=== PATIENT | male | born 1960 | race Caucasian/White ===

== ENCOUNTER 2016-09-08 12:55 | Inpatient (IN) | payer OTHER ==
[~2016-09-08] VITALS: Ht 193 cm; Wt 107.2 kg
--- NOTE | 2016-09-09 08:36 | CO ---
ADMIT: 09/08/2016 RM/LOC: 501 [facility] MR#: [id number] [address] [facility] [address] [place], [place] [address] [address] [place] [address] Consultation SEX: M AGE: 56 : 1960 DATE OF CONSULTATION: 09/08/2016 ATTENDING PHYSICIAN: Ebenezer Barragan CONSULTING PHYSICIAN: Jane Callaway MD CHIEF COMPLAINT: Right hip pain. 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 He fell today on the ice, injuring his right hip. He presented to the emergency room where he was found to have a valgus impacted right femoral neck fracture. PAST MEDICAL HISTORY: He has had knee arthroscopy in the past. MEDICATIONS: 1. Atenolol. 2. Lexapro. 3. Lipitor. 4. Folic acid. 5. Prilosec. ALLERGIES: NONE KNOWN TO MEDICATIONS. MEDICAL PROBLEMS: Include hypertension. SOCIAL HISTORY: The patient is . 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 FAMILY HISTORY: Noncontributory. PHYSICAL EXAMINATION: This patient has no obvious deformity of the right lower extremity. Neurocirculatory function is intact. There is no shortening or external rotation deformity. X-rays were as described above. IMPRESSION: Valgus impacted right femoral neck fracture. RECOMMENDATION: Percutaneous screw fixation right hip with Synthes 7.3 mm cannulated screws. Risks, benefits, alternatives, as well as potential complications were discussed. Jane Callaway MD/ lauryn JOB #: [id number] CC: Ebenezer Barragan, Attending Physician Ebenezer Barragan, Family Physician
--- NOTE | 2016-09-10 08:56 | OR ---
ADMIT: 09/08/2016 RM/LOC: 501 [facility] MR#: [id number] [address] [facility] [address] [place], [place] [address] [address] [place], [place] [id number] Operative/Delivery Room Report SEX: M AGE: 56 : 1960 SURGERY DATE: 09/09/2016 SURGEON: Jane Callaway MD PREOP DIAGNOSIS: Valgus impacted right femoral neck fracture. POSTOP DIAGNOSIS: Valgus impacted right femoral neck fracture. PROCEDURE: Percutaneous screw fixation, right femoral neck fracture. NEWSPAPER EDITOR: MEAGAN Kelsey ANESTHESIA: General. ESTIMATED BLOOD LOSS: 25 mL. COMPLICATIONS: None. SPECIMEN: None. IMPLANTS: Two 100 mm 7.3 Synthes cancellous screws with 16 mm threads, one 105 mm with 32 mm threads. PROCEDURE IN DETAIL: This patient was brought to the operating room. After satisfactory level of anesthesia was achieved, he was positioned on the fracture table in supine position. The right lower extremity was placed in traction. The left lower extremity placed in a cushioned leg rest. The extremity was then prepped and draped in the usual sterile fashion. A small 2 cm incision was made at the base of his greater trochanter laterally. Dissection was bluntly carried through the subcutaneous tissue down to the lateral femur. I then used 3 guidewires placing these parallel and sending them on AP and lateral C-arm images. I then reamed the cortices of these over these guidewires and then placed three 7.3 cancellous screws for good fixation of the fracture. AP and lateral C-arm images were obtained. After irrigation of the wound, hemostasis was achieved using electrocautery. The wound was closed with 2-0 Vicryl in the subcutaneous tissue, maria luisa in the skin. A sterile dressing was applied and the patient was transferred from the operative suite in stable condition. Jane Callaway MD/ lauryn JOB #: [id number] CC: Ebenezer Barragan, Attending Physician Ebenezer Barragan, Family Physician
[2016-09-12] MEDS ORDERED: NAPROXEN500 MG PO (06:10)
[2016-09-12] MEDS ORDERED: LIPITOR DPS20 MG PO (06:10)
[2016-09-12] MEDS ORDERED: ULTRAM DPS50 MG PO (06:10)
[2016-09-12] MEDS ORDERED: PRILOSEC DPS20 MG PO (06:12)
[2016-09-12] MEDS ORDERED: TENORMIN DPS50 MG PO (06:12)
[2016-09-12] MEDS ORDERED: VIAGRA100 MG PO (06:13)
[2016-09-12] MEDS ORDERED: LEXAPRO DPS20 MG PO (06:13)
[2016-09-12] MEDS ORDERED: FOLVITE-DPS1 MG PO (06:13)
[2016-09-12] MEDS ORDERED: METHOTREXATE2.5 MG PO (06:14)
[2016-09-12] MEDS ORDERED: PROAIR RESPICL90 MCG IH (06:15)
[2016-09-12] MEDS ORDERED: RESTASIS1 EACH OU (06:15)
[2016-09-12] MEDS ORDERED: VITAMIN D1000 UNIT PO (06:16)
[2016-09-12] MEDS ORDERED: VITAMIN B-12500 MCG PO (06:16)
[2016-09-12] MEDS ORDERED: VITAMIN E400 UNI4 PO (06:17)
[2016-09-12] MEDS ORDERED: ASA325 MG PO (06:18)
[2016-09-12] MEDS ORDERED: SENOKOT S1 TAB PO (06:18)
[2016-09-12] MEDS ORDERED: PROBIOTIC1 EAC1 PO (06:18)
[2016-09-12] MEDS ORDERED: DULCOLAX-DPS10 MG PR (06:18)
[2016-09-12] MEDS ORDERED: NORCO 5-325 TA1 EACH PO (06:19)
[2016-09-12] MEDS ORDERED: XANAX DPS0.25 MG PO (06:20)
--- NOTE | 2016-09-12 13:10 | ER ---
ADMIT: 09/08/2016 RM/LOC: 501 [facility] MR#: [id number] [address] [facility] [place], [place] [address] [address] [place] [address] Emergency Room Report SEX: M AGE: 56 : 1960 DATE: 09/08/2016 ADDENDUM: This patient comes into the ER because he slipped on the ice and he landed very hard on his right hip. He was unable to walk and had to crawl into the house. X-ray of the hip showed a nondisplaced femoral neck fracture. I spoke with Dr. Callaway and Dr. Barragan and they will admit the patient and examine him. Please refer to their dictation for further treatment. MEAGAN Cross / Jj Robertson MD / lauryn JOB #: [id number] CC: Ebenezer Barragan MD, Attending Physician Ebenezer Barragan MD, Family Physician
--- NOTE | 2016-09-21 07:58 | HP ---
ADMIT: 09/08/2016 RM/LOC: 501 [facility] MR#: [id number] [address] [facility] [place], [place] [address] [address] [place], [place] [id number] History and Physical SEX: M AGE: 56 : 1960 DATE OF SERVICE: CHIEF COMPLAINT: Right hip pain. HISTORY OF PRESENT ILLNESS: The patient is a 56-year-old white male, who was in his driveway this morning and slipped on the ice. He landed directly on his right hip. Immediately, he had pain in his right hip region and could not bear weight. His brought him into the emergency room for evaluation and he was found to have a right hip fracture. Prior to this injury, he had been feeling fine. No nausea or vomiting. No fevers or chills. No shortness of breath. He has generally been quite healthy. He is admitted for orthopedic evaluation and surgical repair of his right hip fracture. PAST MEDICAL HISTORY: ALLERGIES: NO KNOWN MEDICAL ALLERGIES. CHRONIC MEDICAL PROBLEMS: The patient does have stage 2 chronic kidney disease, heartburn, anxiety, chronic allergic rhinitis, depression, low testosterone, chronic joint pain, anemia, hypercholesterolemia, obesity, hypertension. SOCIAL HISTORY: The patient is a previous user of tobacco but quit in July 2012. He is . 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 He has minimal alcohol use and minimal caffeine use. No drug use. MEDICATIONS: The patient takes: 1. Omeprazole 20 mg b.i.d. 2. Tramadol 50-100 mg four times daily as needed. 3. Lexapro 30 mg daily. 4. Atenolol 50 mg daily. 5. Atorvastatin 20 mg daily. 6. Aspirin 81 mg daily. 7. Naproxen 500 mg b.i.d. 8. Folic acid 2 mg daily. The patient gets monthly Depo-Testosterone injections for low testosterone. Also takes probiotic, vitamin D, vitamin B12. FAMILY HISTORY: Most family members are generally in good health. Mother has hypertension. PAST SURGICAL HISTORY: The patient has had previous left knee surgery and left foot surgery. REVIEW OF SYSTEMS: HEENT: The patient denies visual changes, hearing changes, headache, sore throat, sinus symptoms, neck pain, or difficulty swallowing. ADMIT: 09/08/2016 RM/LOC: 501 [facility] MR#: [id number] [address] [facility] [address] [place] [phone] [facility] [address] [place] [address] History and Physical SEX: M AGE: 56 : 1960 LUNGS: No shortness of breath, wheezes, sputum production, or cough. CARDIAC: No history of chest pain, palpitations, cardiac disease. He does have history of hypertension. GASTROINTESTINAL: No nausea, vomiting, diarrhea, or constipation. GENITOURINARY: No history of kidney stones, urinary problems. Specifically denies dysuria, hematuria, or discharge. ENDOCRINE: No history of diabetes or thyroid abnormalities. PSYCHIATRIC: Has history depression and anxiety and takes medication for this. NEUROLOGIC: No history of strokes or seizures. MUSCULOSKELETAL: He has right hip pain secondary to his acute fracture. Also, has had some chronic joint problems and arthritis over the years. PHYSICAL EXAMINATION: VITAL SIGNS: Most recent vitals include a temperature of 96.4, pulse 62 and regular, respiratory rate 16, blood pressure 139/78. GENERAL: The patient is alert and oriented. He does not appear to be in acute distress. He answers questions appropriately. HEENT: Ears clear bilaterally. Oropharynx moist without erythema or tonsillar enlargement. NECK: Supple without lymphadenopathy or JVD. No thyroid enlargement or tenderness. LUNGS: Clear bilaterally without wheezes, rhonchi, or rales. HEART: Regular rate and rhythm without murmur, rub, or gallop. ABDOMEN: Soft, nontender, and nondistended. No masses palpated. Good bowel sounds throughout. EXTREMITIES: With functional range of motion except for the right hip which is fractured. He has moderate tenderness around the right hip region. Lower extremities show no clubbing, cyanosis, or edema. NEUROLOGIC: No focal deficits. LABORATORY AND X-RAY DATA: Admission x-ray of right hip showed an acute nondisplaced impacted fracture of the right femoral neck. White blood cell count is 12.4, hemoglobin 13.7, platelet count 184. INR 1.08. Admission sodium 142, potassium 4.2, BUN 21, creatinine mildly elevated at 1.5, glucose 77, calcium 8.2. Urinalysis was negative/normal without signs of infection. Troponin I is negative at less than 0.015. EKG showed sinus rhythm without acute ST or T-wave changes. Chest x-ray has been done, but results are pending. ADMIT: 09/08/2016 RM/LOC: 501 [facility] MR#: [id number] [address] [place] [address] [place] [phone] [facility] [address] [place] [id number] History and Physical SEX: M AGE: 56 : 1960 ASSESSMENT: 1. Acute right hip fracture secondary to a fall at home today. 2. Hypertension. 3. Renal insufficiency (chronic). 4. History of low testosterone. PLAN: The patient has been admitted for pain control. I have consulted Ortho to see this patient, plan repair for the right hip fracture. He has essentially been cleared with his lab work, EKG, and chest x-ray at this time. He will continue his home medications and we will plan on surgical repair of his right hip tomorrow. Ebenezer Barragan MD/ lauryn JOB #: [id number] CC: Ebenezer Barragan, Attending Physician Ebenezer Barragan, Family Physician
--- NOTE | 2016-10-11 08:07 | DS ---
ADMIT: 09/08/2016 RM/LOC: 501 [facility] MR#: [id number] [address] [facility] [place], [place] [address] [address] [place], [place] [id number] General Discharge Summary SEX: M AGE: 56 : 1960 ADMISSION DATE: 09/08/2016 DISCHARGE DATE: 09/11/2016 PRIMARY DIAGNOSES: 1. Right hip fracture (status post surgical repair on 09/09/2016). 2. Hypertension. 3. Chronic kidney disease. 4. Low testosterone. 5. Anemia. CONSULTATIONS DURING THIS HOSPITALIZATION: Orthopedic with Jane Callaway MD. PROCEDURES DURING THIS HOSPITALIZATION: Surgical repair of right hip fracture on 09/09/2016, by Dr. Jim Callaway. HISTORY OF PRESENT ILLNESS: The patient is a 56-year-old white male, who was in his driveway the morning of 09/08/2016, and slipped on the ice. He landed directly on his right hip. Immediately began to have pain in the right hip region and could not bear weight. His found him and brought him into the emergency room for evaluation and he was found to have a right hip fracture per x-rays. Prior to this injury, he had been feeling fine. No fevers, chills, nausea, or vomiting noted. He has generally been quite healthy. He is admitted for surgical repair of his right hip fracture. LABORATORY AND X-RAY DATA: Admission labs included an x-ray of the right hip that showed an acute nondisplaced impacted fracture of the right femoral neck. White blood cell count was 12.4, hemoglobin 13.7, platelet count 184, INR 1.08. Sodium 142, potassium 4.2, BUN 21, creatinine mildly elevated at 1.5, glucose 77, calcium 8.2. Urinalysis was negative/normal without signs of infection. Troponin I was negative at less than 0.015. EKG showed sinus rhythm without acute ST or T-wave changes. Chest x-ray showed an old fracture of the right clavicle, but no evidence of congestive heart failure or pneumonia. Additional pertinent labs included lab prior to discharge on 09/11/2016, and this showed a sodium of 143, potassium 3.8, BUN 16, creatinine 1.4, glucose 99, alkaline phosphatase 62, AST 16, ALT 14. White blood cell count 9.2, hemoglobin 11.5, platelet count 150. HOSPITAL COURSE: The patient was admitted on 09/08/2016, after falling and sustaining a right hip fracture. He was admitted by me and Ortho was consulted at time of admission. Regular home medications were continued. Morphine [employer] was ordered for pain. The patient did undergo a right hip fracture repair by Dr. Callaway on 09/09/2016, and tolerated this without problems. Daily lab work was followed. PT and OT were consulted. He was initially started on Lovenox injections, but then switched to aspirin 325 mg once daily for DVT prophylaxis. The patient did have some mild nausea postoperatively, but overall did well. He was started on some Xanax 0.25 mg ADMIT: 09/08/2016 RM/LOC: 501 [facility] MR#: [id number] 26[address] [facility] [address] [place] [phone] [address] [facility] [address] [place] [address] General Discharge Summary SEX: M AGE: 56 : 1960 q.6 hours as needed for some anxiety. By 09/11/2016, he was doing well. No nausea, vomiting, fevers, chills, or shortness of breath noted. He was therefore set up to be discharged to home in very stable condition. DISCHARGE INSTRUCTIONS: The patient was discharged to home on 09/11/2016. DISCHARGE MEDICATIONS: Included: 1. Aspirin 325 mg daily. 2. Probiotic once daily. 3. Folvite 2 mg daily. 4. Lexapro 30 mg daily. 5. Lipitor 20 mg daily. 6. Methotrexate 10 mg once weekly. 7. Omeprazole 20 mg b.i.d. 8. Senokot one tab b.i.d. 9. Tenormin 50 mg daily. 10.Vitamin B12 of 500 mcg daily. 11.Vitamin D 1000 units daily. 12.Vitamin E 400 units daily. 13.Proventil inhaler 2 puffs as needed. 14.Restasis eye drops b.i.d. 15.Dulcolax 10 mg at bedtime. 16.Hydrocodone 5/325 mg q.4 hours as needed. 17.Naprosyn 500 mg b.i.d. 18.Ultram 50 mg one to two tabs q.6 hours as needed. 19.Xanax 0.25 mg q.6 hours as needed. DISCHARGE INSTRUCTIONS: He is to continue PT and OT as directed per Orthopedic recommendations. Regular diet as tolerated. Follow up with Ortho in 2 weeks. Ebenezer Barragan MD/ reddl JOB #: [id number] CC: Ebenezer Barragan MD, Attending Physician Ebenezer Barragan MD, Family Physician
== END 2016-09-11 11:43 | disposition home or self-care (01) | DRG 482 ==
LOC: ER 12:55 → 5MS 14:09
PROVIDERS: ADMIT Family Medicine
PROC: 0QH634Z Insertion of Internal Fixation Device into Right Upper Femur, Percutaneous Approach (ICD-10-PCS; principal; 2016-09-09)
DX: S72.001A Fracture of unspecified part of neck of right femur, initial encounter for closed fracture (principal); I12.9 Hypertensive chronic kidney disease with stage 1 through stage 4 chronic kidney disease, or unspecified chronic kidney disease; N18.2 Chronic kidney disease, stage 2 (mild); F41.9 Anxiety disorder, unspecified; J30.9 Allergic rhinitis, unspecified; E34.9 Endocrine disorder, unspecified; F32.9 Major depressive disorder, single episode, unspecified; M25.50 Pain in unspecified joint; M19.90 Unspecified osteoarthritis, unspecified site; G89.29 Other chronic pain; D64.9 Anemia, unspecified; E78.00 Pure hypercholesterolemia, unspecified; W00.0XXA Fall on same level due to ice and snow, initial encounter; Z87.891 Personal history of nicotine dependence; Z79.82 Long term (current) use of aspirin